=== PATIENT | female | born 1950 | race Caucasian/White ===

== ENCOUNTER → 2020-01-21 | Day surgery (SDC) | payer MEDICARE, OTHER ==
[~2020-01-21] MED LIST: METOPROLOL SUCC50 MG PO; MUCINEX PO; OR PHACO EYE KIT ONE; PREOP PHACO EYE KIT ONE; SYNTHROID125 MCG PO
[2020-01-21 13:15] VITALS: BP 125/68
== END | disposition home or self-care (01) ==
LOC: OR 08:50
PROVIDERS: ATTEND Ophthalmology
DX: H25.12 Age-related nuclear cataract, left eye (principal); D64.9 Anemia, unspecified; E03.9 Hypothyroidism, unspecified; R00.0 Tachycardia, unspecified; Z01.812 Encounter for preprocedural laboratory examination; Z11.59 Encounter for screening for other viral diseases
CPT/HCPCS: 66984; U0002; V2632